=== PATIENT | female | born 1985 | race Caucasian/White ===

== ENCOUNTER 2019-12-21 16:57 | Emergency (ER) | payer OTHER, MEDICAID, SELFPAY ==
[2019-12-21 17:02] VITALS: BP 119/77; PULSE 77; RESP 20; TEMP 37; O2SAT 100
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
--- NOTE | 2019-12-21 18:17 | DI.RAD.S_ITS ---
PROCEDURE: XR CERVICAL SPINE 2V OR 3V INDICATIONS: neck pain, burning down right arm. TECHNIQUE: 3 view(s) of the cervical spine were acquired. COMPARISON: None. FINDINGS: Bones: No fractures or dislocations to the C7-T1 level. The lateral masses of C1 appear intact on the odontoid view. No suspicious bony lesions. Minimal degenerative narrowing is noted at C5-6 and C6-7. Soft tissues: No prevertebral soft tissue swelling. IMPRESSION: Minimal early degenerative change. Dictated by: Soheila Macias M.D. on 12/21/2019 at 18:57 Approved by: Soheila Macias M.D. on 12/21/2019 at 18:58
--- NOTE | 2019-12-21 18:17 | DI.RAD.S_ITS ---
PROCEDURE: XR THORACIC SPINE 3V INDICATIONS: Back pain, burning radiating down arm. TECHNIQUE: 3 views of the thoracic spine were acquired. COMPARISON: None. FINDINGS: Bones: No fractures or dislocations. No suspicious bony lesions. 12 pairs of ribs are noted, and appear intact where visualized. Soft tissues: No paravertebral stripe thickening. IMPRESSION: No acute osseous abnormality. Dictated by: Soheila Macias M.D. on 12/21/2019 at 18:57 Approved by: Soheila Macias M.D. on 12/21/2019 at 18:57
[2019-12-21] MEDS: KETOROLAC 60 MG/2 ML VIAL 30 MG IM (18:44)
== END 2019-12-21 19:44 | disposition home or self-care (01) ==
PROVIDERS: Emergency Provider Nurse Practitioner; Family Provider Physician Assistant
DX: M54.2 Cervicalgia (principal); M54.9 Dorsalgia, unspecified
CPT/HCPCS: 72040; 72072; 96372; 99283; J1885

== ENCOUNTER 2020-12-10 12:13 | Emergency (ER) | payer OTHER, SELFPAY ==
[2020-12-10] VITALS (7 sets, daily range): BP systolic 122–135; BP diastolic 62–87; PULSE 63–77; RESP 16; TEMP 36.2; O2SAT 98–99; BMI 25.0
--- NOTE | 2020-12-10 | DI.US.S_ITS ---
PROCEDURE: US RENAL COMPLETE INDICATIONS: RIGHT UPPER, LOWER ABDOMINAL, AND FLANK PAIN. TECHNIQUE: Real-time scanning was performed of the kidneys and bladder, with image documentation. COMPARISON: None. FINDINGS: Kidneys: Kidneys are normal in size. Right kidney measures 9.9 cm long; left kidney measures 10 cm long. Right renal cortical thickness is 1.3 cm; left renal cortical thickness is 1.7 cm. Renal cortical echotexture is normal. No hydronephrosis or nephrolithiasis. No suspicious solid mass lesions. Bladder: Pre-void bladder volume is 55 mL. Post-void residual is 0 mL. Pre-void images demonstrate no intraluminal masses or stones. On pre-void images, both ureteral jets are noted with color Doppler interrogation. (Of note, ureteral jets may not be detectable in up to 25% of cases due to insufficient differences in specific gravity between ureteral and bladder urine). Miscellaneous: No free pelvic fluid. IMPRESSION: Normal renal ultrasound. No hydronephrosis. No postvoid residual. Dictated by: Romeo Goetz M.D. on 12/10/2020 at 13:08 Approved by: Romeo Goetz M.D. on 12/10/2020 at 13:08
[2020-12-10 12:49] LABS: Add Manual Diff / Slide Review NO; Basophils Absolute Auto 0 /uL (0-100); Basophils Percent Auto 0.8 % (0-2); Eosinophils Absolute Auto 100 /uL (0-450); Eosinophils Percent Auto 1.2 % (2-4); Hematocrit 36.5 % (36-46); Lymphocytes Absolute Auto 1600 /uL (1100-4500); Lymphocytes Percent Auto 30.7 % (25-40); Mean Corpuscular HGB Conc 30.2 % (30-36); Mean Corpuscular Hemoglobin 19.9 PG (26-34); Mean Corpuscular Volume 66.1 fL (80-100); Monocytes Absolute Auto 400 /uL (0-900); Monocytes Percent Auto 8.2 % (3-14); Neutrophils Absolute Auto 3000 /uL (1500-7000); Neutrophils Percent Auto 59.1 % (50-75); Platelet Count 325 X10^3/uL (150-400); Red Blood Cell Count 5.52 X10^6/uL (4.0-5.2); Red Cell Distribution Width 17.8 % (11.6-14.8); White Blood Cell Count 5.1 X10^3/uL (4.5-11.0)
[2020-12-10 12:54] LABS: INR 1.1 (0.9-1.3); Prothrombin Time 12.1 SECONDS (10.1-12.7)
[2020-12-10 12:57] LABS: PTT Partial Thromboplastin Tim 35 SECONDS (26.4-36.2)
[2020-12-10 12:59] LABS: Alanine Aminotransferase 20 IU/L (<35); Albumin 4.5 g/dL (3.5-5.0); Albumin Globulin Ratio 1.4 (1.0-2.8); Alkaline Phosphatase 55 U/L (38-126); Aspartate Aminotransferase 24 IU/L (14-36); BUN Creatinine Ratio 21.1 (6-22); Bilirubin Total 0.1 mg/dL (0.2-1.3); Blood Urea Nitrogen 12 mg/dL (7-17); Calcium 9.1 mg/dL (8.4-10.2); Carbon Dioxide 26 mmol/L (22-32); Chloride 103 mmol/L (98-107); Estimated Glomerular Filt Rate > 60.0 mL/min (>60); Globulin 3.3 g/dL (1.7-4.1); Glucose 111 mg/dL (70-100); HEMOLYSIS < 15 (0-50); Lipase 130 U/L (23-300); Potassium 3.8 mmol/L (3.4-5.1); Sodium 137 mmol/L (137-145); Total Protein 7.8 g/dL (6.3-8.2)
--- NOTE | 2020-12-10 13:02 | DI.US.S_ITS ---
PROCEDURE: US PELVIC COMPLETE INDICATIONS: RIGHT UPPER, LOWER ABDOMINAL, AND FLANK PAIN. TECHNIQUE: Real-time scanning was performed of the pelvic organs, with image documentation. Additional endovaginal scanning was necessary due to incomplete visualization of the adnexal and endometrial structures by transabdominal scanning. COMPARISON: [facility], US, PELVIC COMPLETE, 03/02/2011, 16:50. [facility], US, PELVIC COMPLETE, 11/02/2010, 16:04. [facility], PELVIC COMPLETE, 09/29/2007, 18:22. [facility], US RENAL COMPLETE, 12/10/2020, 13:29. FINDINGS: Uterus: Uterus is normal in size at 8.6 x 6.3 x 4.8 cm. The endometrium measures 16 mm in combined thickness. There is a complex nabothian cyst in the cervix measuring 1.1 cm. Ovaries: Right ovary measures 3.8 x 2.2 x 1.6 cm. Left ovary measures 3.1 x 2.0 x 1.8 cm. There is positive vascularity to both ovaries bilaterally on Doppler ultrasound. Other: No pathologic free abdominal or pelvic fluid. Appendix is not visualized. No secondary findings to suggest acute appendicitis. IMPRESSION: 1. Endometrium is thickened measuring 16 mm. Differential diagnosis include endometrial hyperplasia versus physiological thickening related to menses. A follow-up ultrasound is suggested in 6 weeks. 2. A 1.1 cm complex nabothian cyst. 3. Unremarkable ovaries. Dictated by: Asya Stark M.D. on 12/10/2020 at 14:54 Approved by: Asya Stark M.D. on 12/10/2020 at 15:01
[2020-12-10 13:05] LABS: Anisocytosis 2+
--- NOTE | 2020-12-10 13:20 | ED.ABDPAIN ---
HPI - Abdominal Pain <Jose Padron [facility] - Last Filed: 12/10/20 16:37> General Chief Complaint: Abdominal Pain Stated Complaint: Pain on upper right side of stomach Time Seen by Provider: 12/10/20 12:38 Source: patient Mode of arrival: Ambulatory Limitations: no limitations History of Present Illness HPI narrative: This is a 35-year-old female, former smoker, who has past medical history significant for and tubal ligation, ovarian cyst presents to ED with chief complain of worsening right low abdomen for last 3 days and she was not able to walk yesterday. She had significant decreased appetite did not a for couple of days. Patient reports discomfort extended to right shoulder. Prior to this patient has some discomfort in right upper, side and flank pain and describes as spasming for about 6 months. Patient reports her right-side of abdomen and side feels swollen and bloated. Patient feels chills but no fever. Patient states feels dehydrated and super thirsty. Patient noticed decreased appetite. Patient LMP 12 days ago which was normal and she had started another light period yesterday. Patient reports pain is worse with movement and eating. Patient reports urinary frequency and increased small amount of nonbloody bowel movements for last 2 days. She usually has bowel movement once a day but she had about 3-4 times per 24 hour period. Patient also reports dysparenuria for last 6 months and denies unusual vaginal discharge and reports has 1 sexual partner which is her . No PCP currently. Related Data Allergies Allergy/AdvReac Type Severity Reaction Status Date / Time amoxicillin Allergy Severe Anaphylaxis Verified 12/10/20 12:31 Penicillins Allergy Severe Anaphylaxis Verified 12/10/20 12:31 latex Allergy Mild Rash Verified 12/10/20 12:31 Review of Systems <Jose Padron [employer] - Last Filed: 12/10/20 16:37> Review of Systems Narrative: General: Denies fever, (+) chills, fatigue, malaise, sweats. HEENT: Denies sinus pain, ear pain, sore throat, difficulty swallowing, dizziness. Respiratory: Denies dyspnea, cough, wheezing, hemoptysis, sputum. Cardiovascular: Denies chest pain, palpitations, orthopnea, edema. Gastrointestinal: See HPI : Denies dysuria, (+) frequency, incontinence, hematuria, urinary retention. Musculoskeletal: Denies weakness, joint pain or bony pain. Skin: Denies rash, skin lesions, or other. Neurologic: Denies weakness, headache, numbness, change in speech, confusion, seizures, incoordination. Psychiatric: No concerning psychosocial issues. 12-point review of systems is negative except for those stated above. Patient History <PHYLICIA Cardenas - Last Filed: 12/10/20 16:37> Medical History No significant medical problems Surgical History History of bilateral tubal ligation History of Social History Smoking Status: Former smoker alcohol intake frequency: 0-2 drinks per day Substance Use Type: marijuana Exam <PHYLICIA Cardenas - Last Filed: 12/10/20 16:37> Narrative Exam Narrative: GEN: Alert, oriented x 3, well appearing and nourished, and in no acute distress. Head: Normal cephalic, atraumatic. No scalp or temporal tenderness, palpable mass or rash. EYES: Pupils are equal, round, and reactive to light and accommodation. Extraocular muscles are intact bilaterally. There is no subconjunctival hemorrhage, exudate and sclera non-icteric. ENT: Hearing grossly intact. Nose without bleeding, purulent discharge or deviation. Mucous membrane moist, no mucosal lesion. Throat without erythema, tonsillar hypertrophy or exudate. Uvula in midline, airway patent. Neck: Trachea in midline. No JVD, non-tender without lymphadenopathy. No masses or thyroid megaly. Supple, non-tender and no meningeal signs. CARDIAC: Normal regular rate and rhythm without murmurs, gallops, or rubs. No chest wall tenderness. No peripheral edema, cyanosis or pallor. Capillary refill is less than 2 seconds. RESPIRATORY: Lungs are clear to auscultate bilaterally. No cough, wheezes, rales, or rhonchi. No stridor, respiratory distress, increase work of breathing, or accessary muscle used. ABD: Abdomen soft and non-distended. Mild tenderness to palpate in right lower quadrant, left upper quadrant. No guarding or rebound tenderness to palpate. Bowel sounds are normal in all 4 quadrants. There is no palpable masses or organomegaly. EXT: Full painless ROM of all extremities with no loss of sensation, strength, effusion or edema. SKIN: Warm, dry, normal color for patient. No erythema, lesions or rash over visible areas. BACK: Nontender without deformity or crepitance. Mild left flank tenderness to percuss. NEUROLOGICAL: Alert and oriented to place, time and person. Sensation and motor function intact bilaterally. No facial droops, dysphasia. PSYCHIATRIC: Good judgement and reason, without hallucinations, abnormal affect or abnormal behaviors during the examination. Patient is not suicidal. Initial Vital Signs Initial Vital Signs: Vital Signs Temperature 97.1 F L 12/10/20 12:23 Pulse Rate 77 12/10/20 12:23 Respiratory Rate 16 12/10/20 12:23 Blood Pressure 133/87 12/10/20 12:23 Pulse Oximetry 99 12/10/20 12:23 External Female Exam: normal external appearance Speculum Exam - Vagina: normal appearance of the vagina and other (small amount of dark blood appreciated) Speculum Exam - Cervix: normal appearance of the cervix Bimanual Exam- Vagina & Uterus: normal bimanual exam Bimanual Exam- Adnexa, other: normal adnexae Other: Patient declined entry level civil engineer assistance during pelvic exam. GC chlamydia, wet prep, general culture obtained and sent to lab. <Becky Mcclure DO - Last Filed: 12/11/20 10:52> Initial Vital Signs Initial Vital Signs: Vital Signs Temperature 97.1 F L 12/10/20 12:23 Pulse Rate 77 12/10/20 12:23 Respiratory Rate 16 12/10/20 12:23 Blood Pressure 133/87 12/10/20 12:23 Pulse Oximetry 99 12/10/20 12:23 Scores <PHYLICIA Cardenas - Last Filed: 12/10/20 16:37> GCS [place] coma scale eye opening: Spontaneous [place] coma scale verbal response: Orientated [place] coma scale motor response: Obey commands Gladys coma scale total score: 15 qSOFA Altered Mental Status (GCS <15): No Respiratory rate greater than/equal to 22: No Systolic blood pressure less than or equal to 100: No qSOFA Total: 0 0-1 Not High Risk 1-3 High risk Course <Jose Padron PHYLICIA - Last Filed: 12/10/20 16:37> Orders Ordered: Discontinued Medications Sodium Chloride (Normal Saline 0.9%) 1,000 mls @ 1,000 mls/hr IV BOLUS ONE Stop: 12/10/20 15:18 Last Infusion: 12/10/20 15:22 Dose: 0 mls/hr Documented by: Admin: 12/10/20 14:26 Dose: 1,000 mls/hr Documented by: WANG Ketorolac Tromethamine (Ketorolac 60 Mg/2 Ml Vial) 15 mg IV NOW ONE Stop: 12/10/20 13:26 Last Admin: 12/10/20 13:30 Dose: 15 mg Documented by: NATALY Ondansetron HCl (Ondansetron 4 Mg/2 Ml Inj) 4 mg IV NOW ONE Stop: 12/10/20 12:37 Last Admin: 12/10/20 12:47 Dose: Not Given Documented by: ALEXANDREA Reevaluation(s) Reevaluation #1: Patient reports pain improved and no nausea at this time. Waiting for CT of abdomen pelvis and renal ultrasound results. Informed patient pelvic ultrasound test result showed endometrial thickness which should be followed up by complaint investigations officer specialist for further testing, possible biopsy test. She verbalized understanding. Time: 16:14 Vital Signs Vital signs: Vital Signs - 8 hr 12/10/20 12:23 12/10/20 13:32 12/10/20 13:33 Temperature 97.1 F L Pulse Rate 77 63 72 Respiratory Rate 16 Blood Pressure 133/87 124/74 Pulse Oximetry 99 99 98 12/10/20 14:00 12/10/20 14:30 12/10/20 15:00 Temperature Pulse Rate 67 66 66 Respiratory Rate Blood Pressure 123/82 123/78 122/71 Pulse Oximetry 99 99 99 12/10/20 15:22 Temperature Pulse Rate 66 Respiratory Rate Blood Pressure 135/62 Pulse Oximetry 98 <Becky Mcclure DO - Last Filed: 12/11/20 10:52> Orders Ordered: Discontinued Medications Sodium Chloride (Normal Saline 0.9%) 1,000 mls @ 1,000 mls/hr IV BOLUS ONE Stop: 12/10/20 15:18 Last Infusion: 12/10/20 15:22 Dose: 0 mls/hr Documented by: Admin: 12/10/20 14:26 Dose: 1,000 mls/hr Documented by: WANG Ketorolac Tromethamine (Ketorolac 60 Mg/2 Ml Vial) 15 mg IV NOW ONE Stop: 12/10/20 13:26 Last Admin: 12/10/20 13:30 Dose: 15 mg Documented by: NATALY Ondansetron HCl (Ondansetron 4 Mg/2 Ml Inj) 4 mg IV NOW ONE Stop: 12/10/20 12:37 Last Admin: 12/10/20 12:47 Dose: Not Given Documented by: ALEXANDREA Vital Signs Vital signs: Vital Signs - 8 hr 12/10/20 12:23 12/10/20 13:32 12/10/20 13:33 Temperature 97.1 F L Pulse Rate 77 63 72 Respiratory Rate 16 Blood Pressure 133/87 124/74 Pulse Oximetry 99 99 98 12/10/20 14:00 12/10/20 14:30 12/10/20 15:00 Temperature Pulse Rate 67 66 66 Respiratory Rate Blood Pressure 123/82 123/78 122/71 Pulse Oximetry 99 99 99 12/10/20 15:22 Temperature Pulse Rate 66 Respiratory Rate Blood Pressure 135/62 Pulse Oximetry 98 MDM - Abdominal Pain <PHYLICIA Cardenas - Last Filed: 12/10/20 16:37> Differential Diagnosis Differential diagnosis: Likely acute appendicitis, calculus of kidney, endometriosis, small bowel obstruction and other (Ruptured ovarian cyst, PID) Medical Records Attestation: I reviewed the patient's medical records. Lab Data Attestation: I reviewed the patient's lab results. Result diagrams: 12/10/20 12:39 12/10/20 12:39 Labs: Lab Results 12/10/20 12/10/20 12/10/20 Range/Units 12:39 12:39 12:39 WBC 5.1 (4.5-11.0) X10^3/uL RBC 5.52 H (4.0-5.2) X10^6/uL Hgb 11.0 L (12.0-16.0) g/dL Hct 36.5 (36-46) % MCV 66.1 L (80-100) fL MCH 19.9 L (26-34) PG MCHC 30.2 (30-36) % RDW 17.8 H (11.6-14.8) % Plt Count 325 (150-400) X10^3/uL Neut % (Auto) 59.1 (50-75) % Lymph % (Auto) 30.7 (25-40) % Baker % (Auto) 8.2 (3-14) % Eos % (Auto) 1.2 L (2-4) % Baso % (Auto) 0.8 (0-2) % Neut # (Auto) 3000 (8084-2698) /uL Lymph # (Auto) 1600 (6313-8636) /uL Baker # (Auto) 400 (0-900) /uL Eos # (Auto) 100 (0-450) /uL Baso # (Auto) 0 (0-100) /uL RBC Morphology Not Reportable Anisocytosis 2+ H PT 12.1 (10.1-12.7) SECONDS INR 1.1 (0.9-1.3) APTT 35 (26.4-36.2) SECONDS Sodium 137 (137-145) mmol/L Potassium 3.8 (3.4-5.1) mmol/L Chloride 103 (98-107) mmol/L Carbon Dioxide 26 (22-32) mmol/L BUN 12 (7-17) mg/dL Creatinine 0.57 (0.52-1.04) mg/dL Estimated GFR > 60.0 (>60) mL/min BUN/Creatinine Ratio 21.1 (6-22) Glucose 111 H (70-100) mg/dL Calcium 9.1 (8.4-10.2) mg/dL Total Bilirubin 0.1 L (0.2-1.3) mg/dL AST 24 (14-36) IU/L ALT 20 (<35) IU/L Alkaline Phosphatase 55 (38-126) U/L Total Protein 7.8 (6.3-8.2) g/dL Albumin 4.5 (3.5-5.0) g/dL Globulin 3.3 (1.7-4.1) g/dL Albumin/Globulin Ratio 1.4 (1.0-2.8) Lipase 130 (23-300) U/L Point of care testing: Point of Care Testing Test Results Negative Urine Dip Bedside Urine Glucose Negative Bedside Urine Bilirubin - Negative Bedside Urine Ketone - Negative Urine Specific Whitefield 1.015 Bedside Urine Occult Blood - Negative Bedside Urine pH 6.0 Bedside Urine Protein - Negative Bedside Urine Urobilinogen - Negative Bedside Urine Nitrite - Negative Bedside Urine Leukocytes - Negative Esterase Imaging Data US - ATLASSIAN ADMINISTRATOR: Radiologist's Impression: [address] [id number] ReportSigned Patient: Adrianna Rogers [facility]#: [id number]: 1985Acct:[id number]/Sex: 35 / FDate of Service: 12/10/20Loc: EDAccession Number: [id number] Procedure: US pelvic complete Ordering Provider: Jose Padron PROCEDURE: US PELVIC COMPLETE INDICATIONS: RIGHT UPPER, LOWER ABDOMINAL, AND FLANK PAIN. TECHNIQUE: Real-time scanning was performed of the pelvic organs, with image documentation. Additional endovaginal scanning was necessary due to incomplete visualization of the adnexal and endometrial structures by transabdominal scanning. COMPARISON: [facility], US, PELVIC COMPLETE, 03/02/2011, 16:50. [facility], US, PELVIC COMPLETE, 11/02/2010, 16:04. [facility], PELVIC COMPLETE, 09/29/2007, 18:22. [facility], US RENAL COMPLETE, 12/10/2020, 13:29. FINDINGS: Uterus: Uterus is normal in size at 8.6 x 6.3 x 4.8 cm. The endometrium measures 16 mm in combined thickness. There is a complex nabothian cyst in the cervix measuring 1.1 cm. Ovaries: Right ovary measures 3.8 x 2.2 x 1.6 cm. Left ovary measures 3.1 x 2.0 x 1.8 cm. There is positive vascularity to both ovaries bilaterally on Doppler ultrasound. Other: No pathologic free abdominal or pelvic fluid. Appendix is not visualized. No secondary findings to suggest acute appendicitis. IMPRESSION: 1. Endometrium is thickened measuring 16 mm. Differential diagnosis include endometrial hyperplasia versus physiological thickening related to menses. A follow-up ultrasound is suggested in 6 weeks. 2. A 1.1 cm complex nabothian cyst. 3. Unremarkable ovaries. Dictated by: Asya Stark M.D. on 12/10/2020 at 14:54 Approved by: Asya Stark M.D. on 12/10/2020 at 15:01 US-Renal: Radiologist's Impression: [address] [id number] ReportSigned Patient: Adrianna Rogers MMR#: [id number]: 1985Acct:[id number]/Sex: 35 / FDate of Service: 12/10/20Loc: EDAccession Number: [id number] Procedure: US renal complete Ordering Provider: Jose Padron PROCEDURE: US RENAL COMPLETE INDICATIONS: RIGHT UPPER, LOWER ABDOMINAL, AND FLANK PAIN. TECHNIQUE: Real-time scanning was performed of the kidneys and bladder, with image documentation. COMPARISON: None. FINDINGS: Kidneys: Kidneys are normal in size. Right kidney measures 9.9 cm long; left kidney measures 10 cm long. Right renal cortical thickness is 1.3 cm; left renal cortical thickness is 1.7 cm. Renal cortical echotexture is normal. No hydronephrosis or nephrolithiasis. No suspicious solid mass lesions. Bladder: Pre-void bladder volume is 55 mL. Post-void residual is 0 mL. Pre-void images demonstrate no intraluminal masses or stones. On pre-void images, both ureteral jets are noted with color Doppler interrogation. (Of note, ureteral jets may not be detectable in up to 25% of cases due to insufficient differences in specific gravity between ureteral and bladder urine). Miscellaneous: No free pelvic fluid. IMPRESSION: Normal renal ultrasound. No hydronephrosis. No postvoid residual. Dictated by: Romeo Goetz M.D. on 12/10/2020 at 13:08 Approved by: Romeo Goetz M.D. on 12/10/2020 at 13:08 [facility] Narrative Medical decision making narrative: This is a 35 year female who presents to ED with severe right lower quadrant pain for last 3 days radiating to right shoulder with nausea, decreased appetite, irregular menstruation. Patient also reports urinary and stool frequent, chills as associated symptoms. Before this patient had right-sided abdominal bloatedness and LUQ and epigatric pain for at least 6 month and concerned for cholecystitis. She also reports dyspareunia. Physical exam appreciated right lower quadrant and left upper quadrant mild tenderness and right flank discomfort with percussion. Otherwise, unremarkable physical exam. Given irregular menstruation and LMP 2 days ago which is light, concerned for ruptured ovarian cyst. Patient reports history of ovarian cyst. Ultrasound of pelvic and renal ordered. Normal renal ultrasound without mass, lesion, hydronephrosis or nephrolithiasis. Urine test was negative for infection. Status post BTL, urine test was negative. Pelvic ultrasound shows endometrium thickened which measured 16 mm. Also it showed 1.1 cm complex nabothian cyst. Unremarkable ovaries. Pelvic exam was unremarkable. GC chlamydia, genital culture, wet prep obtained and sent to lab. Abdomen/pelvis CT found that appendix was not visualized but secondary signs of acute appendicitis not showing. There is a large amount of fecal debris is in 2nd and right colon. 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 Gallbladder and pancreas unremarkable. Patient advised to elect primary care physician and advised to follow up with thyroid hormone test if she has concerns. Findings shared with patient. Advised to take iron pill if patient is symptomatic anemia and has history of known anemia. Also, patient advised to follow-up with complaint investigations officer provider refer symptoms persists and to follow-up on ultrasound test results of thickened endometrium. She verbalized understanding in agreement with the treatment plan. <Becky Mcclure, DO - Last Filed: 12/11/20 10:52> Lab Data Labs: Lab Results 12/10/20 12/10/20 12/10/20 Range/Units 12:39 12:39 12:39 WBC 5.1 (4.5-11.0) X10^3/uL RBC 5.52 H (4.0-5.2) X10^6/uL Hgb 11.0 L (12.0-16.0) g/dL Hct 36.5 (36-46) % MCV 66.1 L (80-100) fL MCH 19.9 L (26-34) PG MCHC 30.2 (30-36) % RDW 17.8 H (11.6-14.8) % Plt Count 325 (150-400) X10^3/uL Neut % (Auto) 59.1 (50-75) % Lymph % (Auto) 30.7 (25-40) % Baker % (Auto) 8.2 (3-14) % Eos % (Auto) 1.2 L (2-4) % Baso % (Auto) 0.8 (0-2) % Neut # (Auto) 3000 (2586-9175) /uL Lymph # (Auto) 1600 (3181-7331) /uL Baker # (Auto) 400 (0-900) /uL Eos # (Auto) 100 (0-450) /uL Baso # (Auto) 0 (0-100) /uL RBC Morphology Not Reportable Anisocytosis 2+ H PT 12.1 (10.1-12.7) SECONDS INR 1.1 (0.9-1.3) APTT 35 (26.4-36.2) SECONDS Sodium 137 (137-145) mmol/L Potassium 3.8 (3.4-5.1) mmol/L Chloride 103 (98-107) mmol/L Carbon Dioxide 26 (22-32) mmol/L BUN 12 (7-17) mg/dL Creatinine 0.57 (0.52-1.04) mg/dL Estimated GFR > 60.0 (>60) mL/min BUN/Creatinine Ratio 21.1 (6-22) Glucose 111 H (70-100) mg/dL Calcium 9.1 (8.4-10.2) mg/dL Total Bilirubin 0.1 L (0.2-1.3) mg/dL AST 24 (14-36) IU/L ALT 20 (<35) IU/L Alkaline Phosphatase 55 (38-126) U/L Total Protein 7.8 (6.3-8.2) g/dL Albumin 4.5 (3.5-5.0) g/dL Globulin 3.3 (1.7-4.1) g/dL Albumin/Globulin Ratio 1.4 (1.0-2.8) Lipase 130 (23-300) U/L Point of care testing: Point of Care Testing Test Results Negative Urine Dip Bedside Urine Glucose Negative Bedside Urine Bilirubin - Negative Bedside Urine Ketone - Negative Urine Specific Whitefield 1.015 Bedside Urine Occult Blood - Negative Bedside Urine pH 6.0 Bedside Urine Protein - Negative Bedside Urine Urobilinogen - Negative Bedside Urine Nitrite - Negative Bedside Urine Leukocytes - Negative Esterase Discharge Plan Departure Patient Disposition: Home Clinical Impression: Endometrial thickening on ultrasound Abdominal pain Qualifiers: Abdominal location: right lower quadrant Qualified Code(s): R10.31 - Right lower quadrant pain Anemia Qualifiers: Anemia type: unspecified type Qualified Code(s): D64.9 - Anemia, unspecified Instructions: DI for Abdominal Pain-Adult Activity Restrictions/Additional Instructions: You have been diagnosed with [abdominal pain. No signs of UTI, test was negative. Pelvic ultrasound shows thickened endometrium which could be due to menstrual vs. Hyperplasia. It is recommended follow-up ultrasound in 6 weeks for resolution. Kidney ultrasound without acute findings such as mass, hydronephrosis, or kidney stone. Abdominal CT was unremarkable. There auras large amount stools in right-sided of colon and no indications for acute sage tests itis at this time. Chemistry test was unremarkable. CBC test shows mild anemia. Pelvic culture pending. You will receive a phone call from us if you require antibiotic medications. ]. What to do: *Take your medications as directed. You can take [id number] Tylenol and or Motrin as needed for discomfort. Use Zofran that you have use as needed for nausea. *Follow up with your primary care provider in 2-3 days, call for an appointment. Let them know you were seen in the ED and that we asked you to be seen in follow up. *Return to ED if you have any new, worsening, or concerning symptoms, such as [fever, worsening abdominal pain, unable to tolerate fluids, chest pain, breathing difficulty or any acute concerns]. Referrals: [facility] [Outside] [place],MD Lilian [Physician] - <Becky Mcclure DO - Last Filed: 12/11/20 10:52> Cosign ED Attending Ton Attestation: I was immediately available in the department for consultation. Documentation has been reviewed. I agree with assessment and plan.
[2020-12-10] MEDS: KETOROLAC 60 MG/2 ML VIAL 15 MG IV (13:30)
[2020-12-10] MEDS: SODIUM CHLORIDE 0.9% 1,000 ML 1000 ML IV (14:26)
--- NOTE | 2020-12-10 15:20 | DI.CT.S_ITS ---
PROCEDURE: CT ABDOMEN PELVIS W CON INDICATIONS: RLQ pain x 3 days, decreased appetite TECHNIQUE: After the administration of intravenous contrast, 5 mm thick sections acquired from the diaphragm to the symphysis. 5 mm coronal and sagittal reformats were acquired. For radiation dose reduction, the following was used: automated exposure control, adjustment of mA and/or kV according to patient size. COMPARISON: None. FINDINGS: Image quality: Excellent. ABDOMEN: Lung bases: Lung bases are clear. Heart size is normal. Solid organs: Liver is normal in size and enhancement. Gallbladder is unremarkable. Biliary system is non dilated. Pancreas enhances normally. Spleen is normal in size and enhancement. No adrenal nodules. Kidneys demonstrate normal size and enhancement, without hydronephrosis. Peritoneum and bowel: Bowel loops demonstrate normal wall thickness and caliber. No free fluid or air. Large amount of fecal debris in the cecum and right colon. The appendix is not visualized. Nodes and vessels: No retroperitoneal or mesenteric adenopathy by size criteria. Aorta and inferior vena cava are normal in size. Miscellaneous: No ventral hernias. PELVIS: Genitourinary: Bladder wall thickness is normal. Miscellaneous: No inguinal hernias or adenopathy. There is a collapsed right ovarian cyst on image 71/2. Bones: No suspicious bony lesions. No vertebral body compression fractures. IMPRESSION: 1. Appendix not visualized. No secondary signs of acute appendicitis. 2. Large amount of fecal debris in the cecum and right colon. 3. Collapsed right adnexal cyst. Dictated by: Jabier Whipple M.D. on 12/10/2020 at 16:10 Approved by: Jabier Whipple M.D. on 12/10/2020 at 16:13
--- NOTE | 2020-12-10 15:30 | PC.NURSE ---
assisted pt to bsc, pt very unsteady on feet. pt sob with movement, pt states is normal for her. pt requiring 2 person assist to get back onto stretcher. pt's vitals stable when she returned to stretcher.
[2020-12-16 14:13] LABS: Chlamydia trachomatis Negative (Negative); Mycoplasma genitalium Negative (Negative); Neisseria gonorrhoeae Negative (Negative)
== END 2020-12-10 17:09 | disposition home or self-care (01) ==
PROVIDERS: Emergency Medicine; Emergency Provider Nurse Practitioner Family; Family Provider Physician Assistant
DX: R93.89 Abnormal findings on diagnostic imaging of other specified body structures (principal); R10.31 Right lower quadrant pain; D64.9 Anemia, unspecified; N94.10 Unspecified dyspareunia
CPT/HCPCS: 36415; 74177; 76770; 76830; 76856; 80053; 81003; 81025; 83690; 85025; 85610; 85730; 87070; 87205; 87210; 87491; 87591; 96361; 96374; 99283; 99284; J1885

== ENCOUNTER → 2021-04-18 08:19 | Outpatient (CLI) | payer OTHER, MEDICAID, SELFPAY ==
[2021-04-18 14:14] LABS: COVID19 -Nasal RAPID Negative (Negative)
== END ==
PROVIDERS: Family Provider Physician Assistant; Visit Provider Obstetrics & Gynecology
DX: Z01.812 Encounter for preprocedural laboratory examination (principal); Z20.822 Contact with and (suspected) exposure to COVID-19
CPT/HCPCS: 87635

== ENCOUNTER 2021-04-19 06:46 | Day surgery (SDC) | payer OTHER, SELFPAY ==
[2021-04-14 15:13] VITALS: BMI 25.9
[2021-04-19] VITALS (17 sets, daily range): BP systolic 99–140; BP diastolic 56–90; PULSE 56–77; RESP 12–18; TEMP 36.1–37.3; O2SAT 96–100; BMI 25.9
--- NOTE | 2021-04-19 | PATH_ITS ---
[facility] Accession Number: [id number] . 01 Material submitted: . uterus - UTERUS AND BILATERAL FALLOPIAN TUBES . 02 Diagnosis: Uterus and Bilateral Fallopian Tubes, Supracervical Hysterectomy and Bilateral Salpingectomy (Weight 43 grams): Secretory endometrium; negative for glandular hyperplasia, cytologic atypia, or malignancy. Myometrium with no significant histomorphologic abnormality. Uterine serosa with serosal adhesions, non-specific. Fallopian tubes x2 with scattered benign paratubal cysts (1-5 mm in greatest dimension); negative for atypia or malignancy. V 04/22/2021 1105 Local . 02 Electronically signed: . Lucero Recinos MD, Pathologist NPI- [id number] . 01 Gross description: . The specimen is received in formalin labeled uterus and bilateral fallopian tubes and consists of a fragmented uterus weighing 43 grams and measuring 10.0 x 9.0 x 4.0 cm in aggregate. The serosa is kelley-pink with fibrinous adhesions. The cervix is not identified. Sectioning reveals a kelley-pink endometrium measuring 0.1 cm in thickness. The myometrium is kelley-pink and trabeculated. Also, received are two detached fallopian tubes averaging 4.0 cm in length x 1.0 cm in diameter. The serosa is pink-purple and smooth with multiple paratubal cysts ranging from 0.1 to 0.5 cm. Sectioning reveals a kelley-pink mucosa and a stellate lumen measuring 0.4 cm in diameter. Special Makeup Fx Artist Instructor sections are submitted. . A1-A4 - Special Makeup Fx Artist Instructor uterus. A5-A6 - Special Makeup Fx Artist Instructor cross-sections of fallopian tubes with bisected fimbria. ([id number]) /FORM[facility]LY [facility], 1928–1983 04/20/2021 1634 Local . 02 Pathologist provided ICD-10: N88.8, N73.6 . 02 CPT . 335136 Performed at: 01 [facility] [address] [place] [address], [place], [place] [id number] MD Eduardo Stafford MD Phone: [phone] Performed at: [facility] [address] [place], [place] [id number] MD Lilo Mercer MD Phone: [phone]
[2021-04-19] MEDS: GABAPENTIN 300 MG CAPSULE PO (07:13)
[2021-04-19] MEDS: ACETAMINOPHEN 325 MG TABLET 975 MG PO (07:13)
[2021-04-19] MEDS: SCOPOLAMINE 1 PATCH TOP (07:14)
[2021-04-19] MEDS: LACTATED RINGERS 1,000 ML 100 ML IV ×3 (07:32→20:50)
--- NOTE | 2021-04-19 07:43 | PM.PREOP ---
Pre-operative Note COVID-19 COVID-19 status: Negative Result date/Date tested (Pos, Neg/Pending): 04/18/21 Interval Note History & Physical reviewed/Exam performed by Physician: Yes Changes to H&P: No H&P completed within 30 days and has changed as indicated here:: 04/18/21
[2021-04-19] MEDS: CLINDAMYCIN 900 MG/50 ML PIGGYBACK 50 MG IV (07:56)
--- NOTE | 2021-04-19 08:31 | SUR.OPER ---
Lithotomy on padded OR bed. Eads Pad Positioner under torso. Head on pillow, arms padded and tucked at sides. Legs secured in padded yellow fins stirrups.
[2021-04-19] MEDS: BUPIVACAINE 0.5% W/ EPI (PF) 30 ML VIAL INJ (08:41)
[2021-04-19] MEDS: ROPIVACAINE 0.2% PF 2 MG/ML 10ML AMP 20 ML INJ (08:44)
--- NOTE | 2021-04-19 09:20 | P.OP_ITS ---
Operative Date/Time/Diagnoses Date of procedure: 04/19/21 Time of procedure: 09:20 Pre-op diagnosis: Dyspareunia Pelvic adhesions Post-op diagnosis: same Procedure & Clinicians Procedure: Procedures Operation Date: 04/19/21 07:45 Actual Procedures Side Surgeon p Laparoscopic Supracervical Hysterectomy w/ Bilateral Salpingectomy, poss. open Cassandra Araujo MD Indications: Pelvic pain Dyspareunia Surgeon: Cassandra Araujo Material Flow Analyst: Sarabjit Steel Anesthesia Type: General and Local Operative Notes Findings: 7 week size anteverted uterus Bladder to uterine adhesions Tubes status post ligation bilaterally Normal ovaries Normal liver, gallbladder, and appendix Closure Type: primary Specimen(s): left tube, right tube and uterus Applied: catheter (Removed at the end of the case) Estimated blood loss (mL): 10 Blood products transfused: none Procedure in detail: The patient was taken to the operating room where she was placed in the dorsal supine position. After adequate general endotracheal anesthesia was achieved, she was placed in the dorsal lithotomy position, and prepped and draped in the usual sterile fashion. A timeout was performed. A bivalve speculum was placed into the vagina and the anterior lip of the cervix grasped with a single-tooth tenaculum. The cervical os was sequentially dilated until the ZUMI uterine manipulator could pass easily into the endometrial cavity. The single-tooth tenaculum was removed from the anterior lip of the cervix, and the bivalve speculum was removed from the vagina. Attention was then turned to the abdomen where 6 mL of half percent Marcaine with epinephrine were injected in the umbilical fold. A 5 mm incision was made. The Verhees needle was placed into the peritoneal cavity, and its placement confirmed by aspiration and drop test. The Verhees needle was removed. A 5 mm trocar was placed without difficulty. 2 other incisions were made 4 cm lateral to the umbilicus after 5 mL of half percent Marcaine with epinephrine were injected. These were 5 mm incisions. Two 5 mm trochars were placed under direct visualization. The right tube was grasped with an atraumatic grasper. Using the plasma kinetic with settings of 40 W the mesosalpinx was cauterized and cut all the way down to the cornua of the uterus. The cornua of the uterus was then grasped with an atraumatic grasper. The utero-ovarian ligaments were cauterized and cut. The round ligament and broad ligament was cauterized and cut with plasma kinetic. Hemostasis was achieved. There were adhesions between the uterus and bladder and these were taken down with the Endo Warren and PlasmaKinetic. The bladder flap was created jail across with the PlasmaKinetic. The uterine arteries on the right side were extensively cauterized with plasma kinetic. All of this was repeated on the left side. The remainder of the bladder flap was created using the plasma kinetic, and the bladder taken down off the lower uterine segment and cervix. Using the Endoloop, the cervix was amputated from the uterus 2 cm above the uterosacral ligaments, after the ZUMI uterine manipulator was removed from the uterus. A sponge stick was placed into the vagina. The endocervical canal was extensively cauterized with the PlasmaKinetic. 6 mL of half percent Marcaine with epinephrine were injected above the pubic symphysis. A 12 mm trocar was placed. An Endobag was placed through the suprapubic trocar and the uterus and tubes were placed into the Endobag. The trocar was removed. The edges of the endobag were brought up through the skin. The Rohan was placed into the endobag. The uterus was hand morcellated in approximately 6 pieces. The Endobag was removed with the Rohan from the peritoneal cavity. The pelvis was copiously irrigated with warm normal saline. No bleeding was noted. The instruments were removed from the abdomen. The CO2 was allowed to escape. The suprapubic incision was closed on the fascia with 0 Vicryl. All of the incisions were closed with 4-0 Biosyn in a subcuticular fashion. The moistened sponge stick was removed from the vagina. Sponge, lap, and instrument counts were correct x-2. The patient tolerated the procedure well, was taken to PACU in stable condition. The nurse practitioner physicians assistant during this case did the right side of the uterus. They ran the camera for the primary surgeon. They assisted in retraction in the fascia in creating the suprapubic incision. Complications: none Post-operative Condition: stable Disposition: PACU Plan for aftercare: To acute care after recovery
[2021-04-19] MEDS: OXYCODONE IR 5 MG TABLET PO (10:18)
[2021-04-19] MEDS: fentaNYL 100 MCG/2 ML INJ IV ×2 (10:19→10:24)
[2021-04-19] MEDS: KETOROLAC 30 MG/ML VIAL IV ×2 (11:04→16:59)
[2021-04-19] MEDS: ACETAMINOPHEN 325 MG TABLET 650 MG PO ×2 (12:32→17:00)
--- NOTE | 2021-04-19 14:49 | PC.NURSE ---
Rec'd pt from PACU to rm 225 at 1055. Pt is drowsy but awakens to verbal. VSS. RA. Oriented to room, routine, fall risk, use of call light. Instructed pt to wait for assist before getting OOB. Advanced diet to general. Pt tolerated well. Ambulates to BR to void with gait belt and contact guard assist. Supportive spouse at bedside.
[2021-04-19] MEDS: DOCUSATE 250 MG CAPSULE PO (20:46)
[2021-04-20] MEDS: KETOROLAC 30 MG/ML VIAL IV ×2 (00:18→05:41)
[2021-04-20] MEDS: ACETAMINOPHEN 325 MG TABLET 650 MG PO ×2 (00:18→08:32)
[2021-04-20 00:30] VITALS: BP 111/74; PULSE 80; RESP 16; O2SAT 98
[2021-04-20 00:43] VITALS: TEMP 36.6
[2021-04-20 04:37] VITALS: BP 96/50; PULSE 60; RESP 14; TEMP 36.2; O2SAT 99
[2021-04-20 05:28] LABS: Add Manual Diff / Slide Review NO; Basophils Absolute Auto 0 /uL (0-100); Basophils Percent Auto 0.2 % (0-2); Eosinophils Absolute Auto 0 /uL (0-450); Hematocrit 30.3 % (36-46); Hemoglobin 9.7 g/dL (12.0-16.0); Lymphocytes Absolute Auto 1200 /uL (1100-4500); Mean Corpuscular HGB Conc 32.1 % (30-36); Mean Corpuscular Hemoglobin 22.8 PG (26-34); Mean Corpuscular Volume 71.1 fL (80-100); Monocytes Absolute Auto 900 /uL (0-900); Monocytes Percent Auto 7.6 % (3-14); Neutrophils Absolute Auto 9800 /uL (1500-7000); Neutrophils Percent Auto 82.2 % (50-75); Platelet Count 216 X10^3/uL (150-400); Red Blood Cell Count 4.27 X10^6/uL (4.0-5.2); Red Cell Distribution Width 18.7 % (11.6-14.8)
[2021-04-20 08:00] VITALS: BP 96/45; PULSE 71; RESP 17; TEMP 36.4; O2SAT 98
[2021-04-20] MEDS: DOCUSATE 250 MG CAPSULE PO (08:32)
--- NOTE | 2021-04-20 10:41 | CM.DANOTE ---
DCP: Case received, EMR reviewed and met with patient. Spouse, Kyree, was also at bedside. Introduced self and role. Was able to obtain information regarding patient's baseline activity status prior to surgery. DCP assessment completed with information currently available. Patient is a 36 year old female who admitted yesterday morning to the care of the CUSTOMER SUPPORT SPECIALIST team. Payer: confirmed: [facility]. Patient came to the hospital via private vehicle for a surgical procedure. She had laparoscopic supracervical hysterectomy. Patient has history of dyspareunia. Met briefly with patient and spouse. She was laying on her side in bed, alert and oriented. She was complaining of some nausea. Confirmed that patient resides in [place] with Kyree. She is independent at her baseline, and is employed at [employer]. P: Patient is to be discharged home today with no needs. She will follow up with her CUSTOMER SUPPORT SPECIALIST at her office. Fanny Etienne RN/Blister Packaging Machine Operator
--- NOTE | 2021-04-20 11:53 | PC.NURSE ---
Discharge: Pt feels ready to d/c to home. She has amb in room. No vag flow seen. She has taken a sm amt of diet. She has some sl nausea at times. Med offered for same. She declined. The food doesn't agree with her. Spouse reports he will cook for her at home. Instructed pt to call md if nausea worsens or if she is unable to keep fluids or foods down. Reviewed d/c packet. Rx was esent and they were shown this. Discussed wound care. Pt's spouse is answering more of the questions and got most of the instructions ssince pt is tired and dozes off and on in bed. Questions answered. Pt d/c home via auto w/spouse.
== END 2021-04-20 11:00 | disposition home or self-care (01) ==
LOC: OR 06:47 → AC 06:49
PROVIDERS: Family Provider Physician Assistant; PCP Registered Nurse; Referring Provider Obstetrics & Gynecology; Visit Provider Obstetrics & Gynecology
PROC: 0UT94ZL Resection of Uterus, Supracervical, Percutaneous Endoscopic Approach (ICD-10-PCS; CPT 58542; principal; 2021-04-19 07:45)
DX: N94.10 Unspecified dyspareunia (principal); N73.6 Female pelvic peritoneal adhesions (postinfective); N83.8 Other noninflammatory disorders of ovary, fallopian tube and broad ligament; F41.9 Anxiety disorder, unspecified; J45.20 Mild intermittent asthma, uncomplicated; K21.9 Gastro-esophageal reflux disease without esophagitis
CPT/HCPCS: 58542; 36415; 36592; 85025; J0330; J1100; J1885; J2250; J2405; J2704; J2795; J3010

== ENCOUNTER 2021-04-23 09:28 | Emergency (ER) | payer OTHER, SELFPAY ==
[2021-04-19 12:34] VITALS: BMI 25.9
[2021-04-23] VITALS (15 sets, daily range): BP systolic 108–124; BP diastolic 56–80; PULSE 73–85; RESP 18; TEMP 37.2; O2SAT 92–100; BMI 26.6
--- NOTE | 2021-04-23 09:32 | DI.RAD.S_ITS ---
PROCEDURE: XR CHEST 1V INDICATIONS: suspected sepsis TECHNIQUE: One view of the chest was acquired. COMPARISON: [facility], , CHEST 2 VIEW, 04/26/2010, 21:34. [facility], , XR THORACIC SPINE 3V, 12/21/2019, 18:26. FINDINGS: Surgical changes and devices: None. Lungs and pleura: No focal infiltrates are seen. Calcified granulomas seen at base. On this semiupright portable chest examination, no large pneumothorax or large pleural effusions are seen. Mediastinum: Mediastinal contours appear normal. Heart size is normal. Bones and chest wall: No suspicious bony lesions. Overlying soft tissues appear unremarkable. IMPRESSION: No focal infiltrates are seen. Dictated by: Romeo Goetz M.D. on 04/23/2021 at 9:07 Approved by: Romeo Goetz M.D. on 04/23/2021 at 9:08
--- NOTE | 2021-04-23 09:40 | DI.CT.S_ITS ---
PROCEDURE: CT ABDOMEN PELVIS W CON INDICATIONS: severe pain, vomiting, recent lap hyst TECHNIQUE: After the administration of intravenous contrast, axial sections acquired from the lung bases to the pubic symphysis. Coronal and sagittal reformats were performed. For radiation dose reduction, the following was used: automated exposure control, adjustment of mA and/or kV according to patient size. COMPARISON: [facility], CR, XR CHEST 1V, 04/23/2021, 9:47. [facility], CT, CT ABDOMEN PELVIS W CON, 12/10/2020, 15:33. [facility], US, US PELVIC COMPLETE, 03/09/2021, 16:41. FINDINGS: Image quality: Excellent. Lung bases: Unremarkable. Heart: No significant findings. ABDOMEN: Liver: Unremarkable. Gallbladder: Unremarkable. Biliary ducts: Unremarkable. Pancreas: Unremarkable. Spleen: Unremarkable. Adrenal Glands: Unremarkable. Kidneys and Ureters: Unremarkable. Stomach and Bowel: Stomach, small bowel loops, and colon are unremarkable. There is a moderate amount of stool seen within the colon. Peritoneum: A small amount of free intraperitoneal fluid can be seen. There is a small to moderate of ascites seen that measures up to 30 Hounsfield units. Ventral Wall: No hernias. Postoperative change with gas and irregularity can be seen involving the anterior abdominal wall. There is a right rectus sheath hematoma seen, as on series 2, image 65 measuring approximately 3.5 x 2.5 cm in greatest axial dimension. Abdominal Nodes: No retroperitoneal or mesenteric adenopathy by size criteria. Vessels: Aorta and inferior vena cava are normal in size. PELVIS: Pelvic Organs: Supracervical hysterectomy change is seen. Generalized soft tissue irregularity is seen, yet without a focal fluid collection to suggest abscess. Is an apparent right ovarian hemorrhagic cyst is again seen, as on series 2, image 67 measuring 1.5 cm. Bladder: Unremarkable. Pelvic Nodes: No enlarged lymph nodes. Miscellaneous: No hernias are seen. Bones: Unremarkable. IMPRESSION: Interval supracervical hysterectomy, with generalized inflammatory change and a [id number] amount of complicated ascites, likely hemorrhagic. No focal abscess is identified. Postoperative change of the anterior abdominal wall is seen, including a mild right rectus sheath hematoma. A right ovarian hemorrhagic cyst is again seen. There is a moderate amount of stool seen within the colon. Please correlate with an underlying history of constipation. Dictated by: Romeo Goetz M.D. on 04/23/2021 at 9:59 Approved by: Romeo Goetz M.D. on 04/23/2021 at 10:03
[2021-04-23] MEDS: SODIUM CHLORIDE 0.9% 1,000 ML 1000 ML IV (09:45)
[2021-04-23] MEDS: HYDROMORPHONE 0.5 MG INJ IV (09:46)
[2021-04-23] MEDS: LACTATED RINGERS 1,000 ML 150 ML IV (09:46)
[2021-04-23] MEDS: ONDANSETRON 4 MG/2 ML INJ IV (09:46)
[2021-04-23 09:51] LABS: Add Manual Diff / Slide Review NO; Basophils Absolute Auto 0 /uL (0-100); Basophils Percent Auto 0.2 % (0-2); Eosinophils Absolute Auto 100 /uL (0-450); Eosinophils Percent Auto 0.9 % (2-4); Hematocrit 35.5 % (36-46); Hemoglobin 11.6 g/dL (12.0-16.0); Lymphocytes Absolute Auto 900 /uL (1100-4500); Lymphocytes Percent Auto 10.2 % (25-40); Mean Corpuscular HGB Conc 32.6 % (30-36); Mean Corpuscular Hemoglobin 23.4 PG (26-34); Mean Corpuscular Volume 71.7 fL (80-100); Monocytes Absolute Auto 500 /uL (0-900); Monocytes Percent Auto 5.3 % (3-14); Neutrophils Absolute Auto 7400 /uL (1500-7000); Neutrophils Percent Auto 83.4 % (50-75); Platelet Count 272 X10^3/uL (150-400); Red Blood Cell Count 4.95 X10^6/uL (4.0-5.2); White Blood Cell Count 8.9 X10^3/uL (4.5-11.0)
--- NOTE | 2021-04-23 09:51 | ED_ITS ---
HPI - Abdominal Pain General Chief Complaint: Abdominal Pain Stated Complaint: SURGERY 04/19 LOTS OF PAIN Time Seen by Provider: 04/23/21 09:34 Source: patient and family Mode of arrival: Family Vehicle Limitations: no limitations History of Present Illness HPI narrative: 36-year-old female former smoker with history of pelvic adhesions presents with her significant other and a chief complaint of a rather sudden o nset severe lower pelvic and right lower quadrant pain that started this morning. She has 10/10 pain that is worse when she moves in improves slightly with rest. She has vomited 3 times due to the pain. She denies any vaginal bleeding or discharge. She denies any dysuria, frequency or urgency. She had a laparoscopic hysterectomy at this hospital on April 19. She had been doing fine well with good pain control up until the onset of the symptoms this morning. She last had anything to eat or drink at about 9:00 a.m.. She has had no fever or chills MD complaint: abdominal pain Onset (ago): hour(s) Pain Consistency: constant Location: RLQ and suprapubic Severity: severe Severity scale (1-10): 10 Quality: stabbing and sharp Radiation: none Migration to: no migration Relieving factors: rest Exacerbating factors: movement Context: recent surgery/procedure Associated symptoms: nausea and vomiting Related Data Home Medications Medication Instructions Recorded Confirmed diazepam PO PRN PRN 04/18/21 04/18/21 acyclovir 400 mg PO PRN PRN 04/19/21 04/19/21 escitalopram oxalate [Lexapro] 20 mg PO DAILY 04/19/21 04/19/21 propranolol 10 mg PO QID 04/19/21 04/19/21 Previous Rx's Medication Instructions Recorded oxycodone 5 mg PO Q4H PRN #14 tab 04/20/21 ondansetron 4 mg PO TID-QID PRN #10 tab 04/23/21 Allergies Allergy/AdvReac Type Severity Reaction Status Date / Time amoxicillin Allergy Severe Anaphylaxis Verified 04/23/21 09:37 lurasidone [From Latuda] Allergy Severe Anxiety Verified 04/23/21 09:37 Penicillins Allergy Severe Anaphylaxis Verified 04/23/21 09:37 castor oil Allergy Intermediate Verified 04/23/21 09:37 latex Allergy Mild Rash Verified 04/23/21 09:37 Review of Systems Constitutional Constitutional: Denies chills, Denies fatigue, Denies fever(s), Denies frequent falls, Denies lethargy and Denies weakness Eyes Eyes: Denies change in vision, Denies eye discharge, Denies irritation and Denies loss of vision ENT Ears, Nose, Mouth, and Throat: Denies change in voice, Denies dizziness, Denies neck pain, Denies sore throat and Denies throat swelling Cardiovascular Cardiovascular: Denies chest pain, Denies irregular heart rhythm, Denies lig htheadedness, Denies palpitations, Denies dyspnea, Denies dyspnea on exertion and Denies orthopnea Respiratory Respiratory: Denies cough, Denies dyspnea, Denies dyspnea on exertion and Denies wheezing Gastrointestinal Gastrointestinal: Reports abdominal pain, Denies change in bowel habits, Denies diarrhea, Reports nausea and Reports vomiting Musculoskeletal Musculoskeletal: Denies neck pain and Denies numbness Integumentary/Breasts Skin/Breast: Denies pruritus, Denies erythema, Denies rash and Denies wounds Neurologic Neurologic: Denies behavioral changes, Denies confusion, Denies dizziness, Denies frequent falls, Denies loss of vision, Denies numbness and Denies weakness Psychiatric Psychiatric: Denies anxiety, Denies behavioral changes, Denies confusion, Denies depression, Denies homicidal ideation and Denies suicidal ideation Endocrine Endocrine: Denies fatigue, Denies flushing and Denies palpitations Hematologic/Lymphatic Hematologic/Lymphatic: Denies easy bruising Allergic/Immunologic Allergic/Immunologic: Denies urticaria, Denies throat swelling and Denies wheezing Patient History Medical History Anxiety Bipolar 1 disorder Depression H/O migraine No significant medical problems Surgical History History of bilateral tubal ligation History of History of cervical cerclage [employer] teeth extracted Social History household members: spouse and children Smoking Status: Former smoker alcohol intake: former Smoking Status: Former smoker alcohol intake frequency: 0-2 drinks per day Substance Use Type: marijuana Exam Narrative Exam Narrative: GENERAL: [36] year old patient appears stated age. Well- developed patient, in obvious significant distress, in significant pain, brought in her lower abdomen HEAD: Atraumatic. Normocephalic. EYES: Pupils equal round and reactive. Extraocular motions intact. No scleral icterus. No injection or drainage. ENT: Nose without bleeding, purulent drainage. Throat without erythema, tonsillar hypertrophy or exudate. Airway patent. NECK: Trachea midline. Non tender CARDIOVASCULAR: Regular rate and rhythm without murmurs, gallops, or rubs. RESPIRATORY: Clear to auscultation. Breath sounds equal bilaterally. No wheezes, rales, or rhonchi. GASTROINTESTINAL: Abdomen soft, significant tender in the lower portions of the abdomen, the incisions are clean, dry and intact EXTREMITIES: No edema or joint tenderness. BACK: Nontender without deformity or crepitance. No flank tenderness. NEURO: AOx3. 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) Stat 04/23/21 10:00 Blood Culture Stat Discontinued Medications Hydromorphone HCl (Hydromorphone 0.5 Mg Inj) 0.5 mg IV NOW ONE Stop: 04/23/21 09:41 Last Admin: 04/23/21 09:46 Dose: 0.5 mg Documented by: REAL Sodium Chloride (Normal Saline 0.9%) 1,000 mls @ 1,000 mls/hr IV BOLUS ONE Stop: 04/23/21 10:31 Last Infusion: 04/23/21 10:36 Dose: 0 mls/hr Documented by: Admin: 04/23/21 09:45 Dose: 1,000 mls/hr Documented by: REAL Lactated Ringer's (Lactated Ringers) 1,000 mls @ 150 mls/hr IV CONT MAXWELL Last Infusion: 04/23/21 10:57 Dose: 150 mls/hr Documented by: Infusion: 04/23/21 10:39 Dose: 0 mls/hr Documented by: Admin: 04/23/21 09:46 Dose: 150 mls/hr Documented by: REAL Ondansetron HCl (Ondansetron 4 Mg/2 Ml Inj) 4 mg IV NOW ONE Stop: 04/23/21 09:41 Last Admin: 04/23/21 09:46 Dose: 4 mg Documented by: REAL Vital Signs Vital signs: Vital Signs - 8 hr 04/23/21 09:45 04/23/21 10:00 04/23/21 10:15 Pulse Rate 73 74 76 Blood Pressure Pulse Oximetry 99 97 98 04/23/21 10:29 04/23/21 10:30 04/23/21 10:55 Pulse Rate 75 74 78 Blood Pressure 114/56 L 112/57 L Pulse Oximetry 100 100 99 04/23/21 10:56 04/23/21 11:00 04/23/21 11:15 Pulse Rate 77 78 80 Blood Pressure 124/62 119/60 111/58 L Pulse Oximetry 100 99 97 04/23/21 11:30 04/23/21 11:44 04/23/21 11:45 Pulse Rate 82 73 74 Blood Pressure 108/58 L 114/62 Pulse Oximetry 97 100 100 MDM - Abdominal Pain Lab Data Result diagrams: 04/23/21 09:40 04/23/21 09:40 Labs: Lab Results 04/23/21 04/23/21 04/23/21 Range/Units 09:40 09:40 09:40 WBC 8.9 (4.5-11.0) X10^3/uL RBC 4.95 (4.0-5.2) X10^6/uL Hgb 11.6 L (12.0-16.0) g/dL Hct 35.5 L (36-46) % MCV 71.7 L (80-100) fL MCH 23.4 L (26-34) PG MCHC 32.6 (30-36) % RDW 18.0 H (11.6-14.8) % Plt Count 272 (150-400) X10^3/uL Neut % (Auto) 83.4 H (50-75) % Lymph % (Auto) 10.2 L (25-40) % [place] % (Auto) 5.3 (3-14) % Eos % (Auto) 0.9 L (2-4) % Baso % (Auto) 0.2 (0-2) % Neut # (Auto) 7400 H (6670-5851) /uL Lymph # (Auto) 900 L (4585-0803) /uL [place] # (Auto) 500 (0-900) /uL Eos # (Auto) 100 (0-450) /uL Baso # (Auto) 0 (0-100) /uL Sodium 137 (137-145) mmol/L Potassium 3.7 (3.4-5.1) mmol/L Chloride 102 (98-107) mmol/L Carbon Dioxide 27 (22-32) mmol/L BUN 10 (7-17) mg/dL Creatinine 0.74 (0.52-1.04) mg/dL Estimated GFR > 60.0 (>60) mL/min BUN/Creatinine Ratio 13.5 (6-22) Glucose 101 H (70-100) mg/dL Lactate 1.3 (0.7-2.1) mmol/L Calcium 9.2 (8.4-10.2) mg/dL Total Bilirubin 0.4 (0.2-1.3) mg/dL AST 22 (14-36) IU/L ALT 13 (<35) IU/L Alkaline Phosphatase 61 (38-126) U/L Total Protein 7.4 (6.3-8.2) g/dL Albumin 4.2 (3.5-5.0) g/dL Globulin 3.2 (1.7-4.1) g/dL Albumin/Globulin Ratio 1.3 (1.0-2.8) Lipase 65 (23-300) U/L Procalcitonin 0.04 (<0.5) ng/mL SARS-CoV-2 (PCR) (Negative) Blood Type Antibody Screen 04/23/21 04/23/21 Range/Units 09:40 09:45 WBC (4.5-11.0) X10^3/uL RBC (4.0-5.2) X10^6/uL Hgb (12.0-16.0) g/dL Hct (36-46) % MCV (80-100) fL MCH (26-34) PG MCHC (30-36) % RDW (11.6-14.8) % Plt Count (150-400) X10^3/uL Neut % (Auto) (50-75) % Lymph % (Auto) (25-40) % [place] % (Auto) (3-14) % Eos % (Auto) (2-4) % Baso % (Auto) (0-2) % Neut # (Auto) (2396-7412) /uL Lymph # (Auto) (9480-4808) /uL [place] # (Auto) (0-900) /uL Eos # (Auto) (0-450) /uL Baso # (Auto) (0-100) /uL Sodium (137-145) mmol/L Potassium (3.4-5.1) mmol/L Chloride (98-107) mmol/L Carbon Dioxide (22-32) mmol/L BUN (7-17) mg/dL Creatinine (0.52-1.04) mg/dL Estimated GFR (>60) mL/min BUN/Creatinine Ratio (6-22) Glucose (70-100) mg/dL Lactate (0.7-2.1) mmol/L Calcium (8.4-10.2) mg/dL Total Bilirubin (0.2-1.3) mg/dL AST (14-36) IU/L ALT (<35) IU/L Alkaline Phosphatase (38-126) U/L Total Protein (6.3-8.2) g/dL Albumin (3.5-5.0) g/dL Globulin (1.7-4.1) g/dL Albumin/Globulin Ratio (1.0-2.8) Lipase (23-300) U/L Procalcitonin (<0.5) ng/mL SARS-CoV-2 (PCR) Negative (Negative) Blood Type O Positive Antibody Screen Negative Point of care testing: Urine Dip Bedside Urine Glucose Negative Bedside Urine Bilirubin - Negative Bedside Urine Ketone +/- 5 Urine Specific [place] 1.015 Bedside Urine Occult Blood - Negative Bedside Urine pH 6.0 Bedside Urine Protein - Negative Bedside Urine Urobilinogen - Negative Bedside Urine Nitrite - Negative Bedside Urine Leukocytes - Negative Esterase Imaging Data CT scan - abdomen/pelvis: Radiologist's Impression: [address] [id number] Scan ReportSigned Patient: Adrianna Rogers [facility]#: [id number]: 1985Acct:[id number]/Sex: 36 / FDate of Service: 04/23/21Loc: EDAccession Number: [id number] Procedure: CT abdomen pelvis w con Ordering Provider: Krzysztof Harris D.O. PROCEDURE: CT ABDOMEN PELVIS W CON INDICATIONS: severe pain, vomiting, recent lap hyst TECHNIQUE: After the administration of intravenous contrast, axial sections acquired from the lung bases to the pubic symphysis. Coronal and sagittal reformats were performed. For radiation dose reduction, the following was used: automated exposure control, adjustment of mA and/or kV according to patient size. COMPARISON: [facility], CR, XR CHEST 1V, 04/23/2021, 9:47. [facility], CT, CT ABDOMEN PELVIS W CON, 12/10/2020, 15:33. [facility], US, US PELVIC COMPLETE, 03/09/2021, 16:41. FINDINGS: Image quality: Excellent. Lung bases: Unremarkable. Heart: No significant findings. ABDOMEN: Liver: Unremarkable. Gallbladder: Unremarkable. Biliary ducts: Unremarkable. Pancreas: Unremarkable. Spleen: Unremarkable. Adrenal Glands: Unremarkable. Kidneys and Ureters: Unremarkable. Stomach and Bowel: Stomach, small bowel loops, and colon are unremarkable. There is a moderate amount of stool seen within the colon. Peritoneum: A small amount of free intraperitoneal fluid can be seen. There is a small to moderate of ascites seen that measures up to 30 Hounsfield units. Ventral Wall: No hernias. Postoperative change with gas and irregularity can be seen involving the anterior abdominal wall. There is a right rectus sheath hematoma seen, as on series 2, image 65 measuring approximately 3.5 x 2.5 cm in greatest axial dimension. Abdominal Nodes: No retroperitoneal or mesenteric adenopathy by size criteria. Vessels: Aorta and inferior vena cava are normal in size. PELVIS: Pelvic Organs: Supracervical hysterectomy change is seen. Generalized soft tissue irregularity is seen, yet without a focal fluid collection to suggest abscess. Is an apparent right ovarian hemorrhagic cyst is again seen, as on series 2, image 67 measuring 1.5 cm. Bladder: Unremarkable. Pelvic Nodes: No enlarged lymph nodes. Miscellaneous: No hernias are seen. Bones: Unremarkable. IMPRESSION: Interval supracervical hysterectomy, with generalized inflammatory change and a [id number] amount of complicated ascites, likely hemorrhagic. No focal abscess is identified. Postoperative change of the anterior abdominal wall is seen, including a mild right rectus sheath hematoma. A right ovarian hemorrhagic cyst is again seen. There is a moderate amount of stool seen within the colon. Please correlate with an underlying history of constipation. Dictated by: Romeo Goetz M.D. on 04/23/2021 at 9:59 Approved by: Romeo Goetz M.D. on 04/23/2021 at 10:03 Discharge Plan Departure Patient Disposition: Home Clinical Impression: Hematoma, Post-operative pain Instructions: DI for Hematoma (Bruise), DI for Acute Abdominal Pain Activity Restrictions/Additional Instructions: *You have been diagnosed with [severe lower abdominal pain appears to be related to a small hematoma (bruise) and fair amount of stool. Otherwise your exam, labs, and imaging is very reassuring. I spoke with Dr. Araujo's partner who agrees with the plan to discharge with follow up, and he sent a note to Dr. Araujo to keep her in the loop] *What to do: *Please continue to follow the discharge instructions given to you post operatively. *Please follow up with Dr. Araujo, call the office and let them know your in the emergency department and we asked you to be seen in follow-up *Return to Emergency Department if you should have any new, worsening or adrian rning symptoms, such as [fever greater than 101 F, shaking chills, worsening pain, persistent vomiting or other bothersome symptoms] Prescriptions: New ondansetron 4 mg tablet,disintegrating 4 mg PO TID-QID PRN (Reason: nausea and vomiting) Qty: 10 RF: 0 No Action diazepam PO PRN PRN (Reason: Anxiety) RF: 0 acyclovir 400 mg tablet 400 mg PO PRN PRN (Reason: herpes) RF: 0 propranolol 10 mg tablet 10 mg PO QID RF: 0 escitalopram oxalate [Lexapro] 20 mg Tablet 20 mg PO DAILY RF: 0 oxycodone 5 mg tablet 5 mg PO Q4H PRN (Reason: pain) Qty: 14 RF: 0 Referrals: Cassandra Araujo MD [Physician] - Sandra Guajardo FNP-C [Primary Care Provider] -
[2021-04-23 10:06] LABS: Alanine Aminotransferase 13 IU/L (<35); Albumin 4.2 g/dL (3.5-5.0); Albumin Globulin Ratio 1.3 (1.0-2.8); Alkaline Phosphatase 61 U/L (38-126); Aspartate Aminotransferase 22 IU/L (14-36); BUN Creatinine Ratio 13.5 (6-22); Bilirubin Total 0.4 mg/dL (0.2-1.3); Blood Urea Nitrogen 10 mg/dL (7-17); Calcium 9.2 mg/dL (8.4-10.2); Carbon Dioxide 27 mmol/L (22-32); Chloride 102 mmol/L (98-107); Estimated Glomerular Filt Rate > 60.0 mL/min (>60); Globulin 3.2 g/dL (1.7-4.1); Glucose 101 mg/dL (70-100); HEMOLYSIS < 15 (0-50); Lactate (Lactic Acid) 1.3 mmol/L (0.7-2.1); Lipase 65 U/L (23-300); Potassium 3.7 mmol/L (3.4-5.1); Sodium 137 mmol/L (137-145); Total Protein 7.4 g/dL (6.3-8.2)
[2021-04-23 10:22] LABS: Procalcitonin 0.04 ng/mL (<0.5)
[2021-04-23 11:03] LABS: COVID19 - ADMIT (NP swab/PCR) Negative (Negative)
== END 2021-04-23 12:25 | disposition home or self-care (01) ==
PROVIDERS: Emergency Provider Emergency Medicine; Family Provider Physician Assistant; PCP Registered Nurse
DX: L76.32 Postprocedural hematoma of skin and subcutaneous tissue following other procedure (principal); G89.18 Other acute postprocedural pain; R11.2 Nausea with vomiting, unspecified; Z20.822 Contact with and (suspected) exposure to COVID-19
CPT/HCPCS: 36415; 71045; 74177; 80053; 81003; 83605; 83690; 84145; 85025; 86850; 86900; 86901; 87040; 87635; 96361; 96374; 96375; 99284; C9803; J1170; J2405

== ENCOUNTER → 2021-04-30 12:32 | Outpatient (CLI) | payer OTHER, SELFPAY ==
[2021-04-19 12:34] VITALS: BMI 25.9
[2021-04-30 13:00] LABS: Appearance Urine UA CLEAR; Bilirubin Urine UA NEGATIVE (NEGATIVE); Color Urine UA YELLOW; Glucose Urine UA NEGATIVE (Negative); Ketones Urine UA NEGATIVE (NEGATIVE); Leukocyte Esterase Urine UA NEGATIVE (NEGATIVE); Nitrite Urine UA NEGATIVE (Negative); Occult Blood Urine UA 1+ (Negative); Protein Urine UA NEGATIVE (Negative); Urobilinogen Urine UA 0.2 E.U./dL (0.2)
[2021-04-30 13:19] LABS: pH Urine UA 5.5 (4.5-8.0)
[2021-04-30 13:21] LABS: Bacteria Urine Few (2-10); RBC Urine 1-5/HPF (0-5/HPF); Squamous Epithelial Cell Urine 5-10 /HPF (0-5/HPF); WBC Urine 0-1/HPF (0-5/HPF)
[2021-04-30 13:22] LABS: Culture Indicated Urine Cult Not Indicated; Mucus Urine 1+ (Negative)
== END ==
PROVIDERS: Family Provider Physician Assistant; PCP Registered Nurse; Referring Provider Obstetrics & Gynecology; Visit Provider Obstetrics & Gynecology
DX: R30.0 Dysuria (principal)
CPT/HCPCS: 81001

== ENCOUNTER 2022-04-06 06:11 | Day surgery (SDC) | payer OTHER, MEDICAID, SELFPAY ==
[2021-04-19 12:34] VITALS: BMI 25.9
[2022-04-03 14:53] VITALS: BMI 23.9
[2022-04-06] VITALS (7 sets, daily range): BP systolic 96–119; BP diastolic 58–84; PULSE 60–80; RESP 12–16; TEMP 36.3–36.8; O2SAT 95–98; BMI 23.9
--- NOTE | 2022-04-06 | PATH_ITS ---
[facility] Accession Number: [id number] . 01 Material submitted: . ovary - LEFT OVARY . 01 Diagnosis: Left Ovary, Oophorectomy: Ovary with a benign hemorrhagic corpus luteum cyst (20 mm in greatest dimension). V 04/11/2022 1041 Local . 01 Electronically signed: . Lucero Recinos MD, Pathologist NPI- [id number] . 01 Gross description: . Received in a container of formalin, labeled left ovary, is a 4.0 x 3.0 x 2.5 cm ovary. The serosa is kelley-pink, smooth, and glistening. At one end of the ovary is an exposed 2.0 cm smooth lined cyst filled with hemorrhagic debris. The cyst has compressed and displaced its otherwise unremarkable ovarian parenchyma. Slotter Operator Helper sections are submitted in cassettes A1 and A2. ([id number]) /[facility] 04/08/2022 1440 Local . 01 Pathologist provided ICD-10: N83.209, N94.10 . 01 [facility] . [id number] Specimen Comment: A courtesy copy of this report has been sent to [phone] Performed at: 01 [facility] [address] [place] [address] [address] [facility], [place], [place] [id number] MD Eduardo Stafford MD Phone: [phone]
[2022-04-06 07:11] LABS: COVID19 -Nasal RAPID Negative (Negative)
[2022-04-06] MEDS: LACTATED RINGERS 1,000 ML 42 ML IV (07:20)
--- NOTE | 2022-04-06 07:58 | PM.HP.1 ---
History of Present Illness History of Present Illness Date Patient Seen: 04/06/22 Time Patient Seen: 07:58 Chief complaint: SDC Narrative: Patient is a 37-year-old 4 para 1 with a persistent left ovarian cyst. She presents for laparoscopic removal of the cyst versus removal of the left ovary. Patient History Medical History (Updated 02/20/22 @ 17:56 by Cassandra Araujo MD) Acne Allergies Anemia (~2019) Anxiety Bipolar 1 disorder Cervical spine disease (~2001) Chicken pox Depression Depression H/O migraine Herpes (~2017) History of bipolar disorder Myopia of both eyes No significant medical problems PTSD (post-traumatic stress disorder) (~2001) Rosacea Shoulder pain (~2001) Substance abuse (~2001) Thyroid nodule (~2019) Tinnitus (~2018) Vertigo (~2018) Surgical History Anesthesia History of bilateral tubal ligation (~2009) History of (~2008) History of cervical cerclage History of hysterectomy (~2020) [place] teeth extracted Family & Social History Family History Father Hypertension Mother Hypertension Brother Hypertension Sister Hypertension Grandmother Hypertension Social History: household members children Tobacco & Substance use: Smoking Status Former smoker alcohol intake former alcohol intake frequency 0-2 drinks per day Substance Use Type marijuana Meds Home Medications and Allergies Home Medications Medication Instructions Recorded Confirmed Type acyclovir 400 mg tablet 400 mg PO PRN PRN 04/19/21 04/06/22 History propranolol 10 mg tablet 10 mg PO QID 04/19/21 04/03/22 History fluoxetine 20 mg capsule (Prozac) 20 mg PO DAILY #30 cap 06/10/21 04/06/22 Rx clindamycin phosphate 1 % topical 1 applic TOPICAL DAILY #60 ml 02/16/22 04/06/22 Rx solution cyclobenzaprine 10 mg tablet 10 mg PO TID PRN #30 tab 02/16/22 04/06/22 Rx montelukast 10 mg tablet 10 mg PO DAILY #90 tab 02/16/22 04/06/22 Rx sumatriptan succinate 25 mg tablet See Rx Instructions PO .COMPLEX 02/16/22 04/03/22 Rx #10 tab Allergies Allergy/AdvReac Type Severity Reaction Status Date / Time amoxicillin Allergy Severe Anaphylaxis Verified 04/06/22 07:05 lurasidone [From Latuda] Allergy Severe Anxiety Verified 04/06/22 07:05 Penicillins Allergy Severe Anaphylaxis Verified 04/06/22 07:05 castor oil Allergy Intermediate Verified 04/06/22 07:05 latex Allergy Mild Rash Verified 04/06/22 07:05 Exam Vital Signs (past 8 hours): - 04/06/22 07:09 Temperature 97.6 F Pulse Rate 60 Respiratory Rate 16 Blood Pressure 119/84 Pulse Oximetry 98 Oxygen Delivery Method Room Air Narrative Exam Narrative: HEENT: No thyromegaly, no anterior cervical or supraclavicular lymphadenopathy. Lungs:Clear to auscultation bilaterally, no wheezes. Cardiovascular: Regular rate and rhythm, no murmurs, rubs, or gallops. Abdomen: Well-healed laparoscopy scars. No hepatosplenomegaly. No masses palpable. External genitalia: Normal Vagina: Normal Cervix: Normal Bimanual exam: Left adnexal tenderness Extremities: No edema Objective Labs Labs: Laboratory Results - last 24 hr 04/06/22 06:53 SARS-CoV-2 (PCR) Negative Assessment & Plan Time Spent With Patient Critical Care time: I spent a total of [] minutes of critical care time on this patient's care today; this time is exclusive of procedural time.
--- NOTE | 2022-04-06 08:00 | PM.PREOP ---
Pre-operative Note COVID-19 COVID-19 status: Negative Result date/Date tested (Pos, Neg/Pending): 04/06/22 Criteria for continued procedure: Non-surgical alternatives not available or appropriate per current SOC Interval Note History & Physical reviewed/Exam performed by Physician: Yes Changes to H&P: No H&P completed within 30 days and has changed as indicated here:: 04/06/22
[2022-04-06] MEDS: BUPIVACAINE 0.5% W/ EPI (PF) 30 ML VIAL INJ (08:34)
--- NOTE | 2022-04-06 08:38 | SUR.OPER ---
Lithotomy on padded OR bed, head on pillow, arms padded with gel pads and tucked at sides. Legs secured in padded yellow fins stirrups. Patient voided at 0746 in pre-op area prior to entering Operating Room.
--- NOTE | 2022-04-06 09:05 | PM.GYNOP.1 ---
Operative Date/Time/Diagnoses Date of procedure: 04/06/22 Time of procedure: 09:05 Pre-op diagnosis: Recurrent left ovarian cyst Post-op diagnosis: same Procedure & Clinicians Procedure: Procedures Operation Date: 04/06/22 07:45 Actual Procedure Side Surgeon p laparoscopic Left oophorectomy Cassandra Araujo MD Indications: Recurrent left ovarian cyst Failed medical treatment Surgeon: Cassandra Araujo Anesthesia Type: General and Local Operative Notes Findings: Uterus is surgically absent Tubes are surgically absent Normal right ovary Left ovary with a 5 cm cyst Left lower quadrant adhesion Right ovary to sidewall adhesions Normal liver and gallbladder Closure Type: primary Specimen(s): other (Left ovary) Estimated blood loss (mL): 5 Blood products transfused: none Procedure in detail: After informed consent was obtained, the patient was taken to the operating room where she was placed in the dorsal supine position. After adequate general tracheal anesthesia was achieved, she was placed in the dorsal lithotomy position, and prepped and draped in the usual sterile fashion. A time-out was performed. A moistened sponge stick was placed into the vagina. 6 cc of 0.5% Marcaine with epinephrine were injected in the umbilical fold. A 1 cm incision was made. The Veress needle was placed into the peritoneal cavity, and its placement confirmed by aspiration and drop test. The abdominal cavity was insufflated with 3.0 L of CO2. The Veress needle was removed, and a at 12 mm trocar was placed without difficulty. Two other incisions were made 4 cm lateral to the midline after 6 cc of 0.5% Marcaine with epinephrine were injected. Two 5 mm trocars were placed under direct visualization. The right ovary was identified and was found to be normal. There were some adhesions between the right ovary and the right pelvic sidewall. The power seal was used to take down the adhesions with care to avoid the ureter. On the left side of the left ovary was grasped with an atraumatic grasper. The infundibulopelvic ligament on the left side was cauterized and cut with the power seal. Hemostasis was achieved. The left lower quadrant adhesions to the ovary were also taken down with the power seal. The camera was moved to the right lateral trocar. The small endobag was placed through the umbilical trocar and the ovary placed into the bag. The trocar was removed. The bag was brought up through the incision. The cyst was aspirated and decompressed inside the bag. The bag was removed with ovary without difficulty. This was sent to pathology. The umbilical trocar was replaced. The pelvis was examined and there was no bleeding noted. The instruments were removed from the abdomen. The CO2 was allowed to escape. The trocars were removed. The umbilical incision was closed on the fascia with 0 Vicryl. The subcutaneous layer in the umbilical incision was irrigated with warm normal saline. Two simple interrupted sutures with 3-0 Vicryl were placed to reapproximate the subcutaneous layer. All of the incisions were closed with 4-0 Monocryl in a subcuticular fashion. Steri-Strips and Allevyn dressings were placed. A moistened sponge stick was removed from the vagina. Sponge, lap, and instrument counts were correct x2. The patient tolerated the procedure well, and was taken to PACU in stable condition. Complications: none Post-operative Condition: stable Disposition: PACU Plan for aftercare: Home after recovery
[2022-04-06] MEDS: OXYCODONE/ACETAMINOPHEN 5/325 TABLET 1 TAB PO (09:26)
[2022-04-06] MEDS: ONDANSETRON 4 MG/2 ML INJ IV (10:03)
--- NOTE | 2022-04-06 10:07 | SUR.PHASEII ---
Pt reports nausea. Zofran administered per orders.
--- NOTE | 2022-04-06 10:57 | SUR.PHASEII ---
Pt w/o complaints when asked.
[2022-04-06] MEDS: ONDANSETRON 4 MG ODT 8 MG SL (11:33)
--- NOTE | 2022-04-06 11:37 | SUR.PHASEII ---
Pt reports nausea, IC previously d/c. Zofran ODT administered.
== END 2022-04-06 11:50 | disposition home or self-care (01) ==
PROVIDERS: Family Provider Physician Assistant; PCP Family Medicine; Referring Provider Obstetrics & Gynecology; Visit Provider Obstetrics & Gynecology
PROC: (CPT 58661; principal; 2022-04-06 07:45)
DX: N83.12 Corpus luteum cyst of left ovary (principal); N73.6 Female pelvic peritoneal adhesions (postinfective); F41.9 Anxiety disorder, unspecified
CPT/HCPCS: 58661; 87635; C9803; J0360; J1100; J1170; J2405; J2704

== ENCOUNTER → 2022-05-13 15:08 | Outpatient (CLI) | payer OTHER, MEDICAID, SELFPAY ==
[2021-04-19 12:34] VITALS: BMI 25.9
[2022-05-13 17:00] LABS: Urine N gonorrhoeae NOT DETECTED
[2022-05-13 17:16] LABS: Urine Chlamydia NOT DETECTED
== END ==
PROVIDERS: Family Provider Physician Assistant; PCP Family Medicine; Visit Provider Physician Assistant
DX: R30.0 Dysuria (principal); N89.8 Other specified noninflammatory disorders of vagina; Z11.3 Encounter for screening for infections with a predominantly sexual mode of transmission
CPT/HCPCS: 81002; 87077; 87086; 87186; 87210; 87491; 87591

== ENCOUNTER → 2022-06-19 11:41 | Outpatient (CLI) | payer OTHER, MEDICAID, SELFPAY ==
[2021-04-19 12:34] VITALS: BMI 25.9
[2022-06-21 15:08] LABS: Candida species Positive (Negative); Gardnerella vaginalis Negative (Negative); Trichomoas vaginalis Negative (Negative)
== END ==
PROVIDERS: Family Provider Physician Assistant; PCP Family Medicine; Visit Provider Physician Assistant Medical
DX: N89.8 Other specified noninflammatory disorders of vagina (principal)
CPT/HCPCS: 81002; 87070; 87077; 87205; 87480; 87510; 87660

== ENCOUNTER → 2022-12-08 14:41 | Outpatient (CLI) | payer OTHER, MEDICAID, SELFPAY ==
[2021-04-19 12:34] VITALS: BMI 25.9
[2022-12-08 16:38] LABS: Cancer Antigen 125 6.9 U/mL (0-35)
== END ==
PROVIDERS: Family Provider Physician Assistant; PCP Family Medicine; Referring Provider Obstetrics & Gynecology; Visit Provider Obstetrics & Gynecology
DX: N83.209 Unspecified ovarian cyst, unspecified side (principal); R19.09 Other intra-abdominal and pelvic swelling, mass and lump
CPT/HCPCS: 36415; 86304

== ENCOUNTER → 2022-12-20 15:11 | Outpatient (CLI) | payer OTHER, MEDICAID, SELFPAY ==
[2021-04-19 12:34] VITALS: BMI 25.9
[2022-12-20 16:32] LABS: Appearance Urine UA SL CLOUDY; Bilirubin Urine UA NEGATIVE (NEGATIVE); Color Urine UA YELLOW; Glucose Urine UA NEGATIVE (Negative); Ketones Urine UA TRACE (NEGATIVE); Leukocyte Esterase Urine UA NEGATIVE (NEGATIVE); Nitrite Urine UA NEGATIVE (Negative); Occult Blood Urine UA 1+ (Negative); Protein Urine UA NEGATIVE (Negative); Urobilinogen Urine UA 0.2 E.U./dL (0.2)
[2022-12-20 17:11] LABS: Bacteria Urine Occasional (0-1); RBC Urine 5-10/HPF (0-5/HPF); Squamous Epithelial Cell Urine 5-10 /HPF (0-5/HPF); WBC Urine 1-5/HPF (0-5/HPF)
[2022-12-20 17:12] LABS: Culture Indicated Urine Cult Not Indicated; Mucus Urine 1+ (Negative); Urine N gonorrhoeae NOT DETECTED
[2022-12-20 17:26] LABS: Urine Chlamydia NOT DETECTED
== END ==
PROVIDERS: Family Provider Physician Assistant; PCP Family Medicine; Visit Provider Registered Nurse
DX: R39.89 Other symptoms and signs involving the genitourinary system (principal); R30.0 Dysuria
CPT/HCPCS: 81001; 81002; 87086; 87210; 87491; 87591

== ENCOUNTER → 2023-01-22 15:40 | Outpatient (CLI) | payer OTHER, MEDICAID, SELFPAY ==
[2021-04-19 12:34] VITALS: BMI 25.9
== END ==
PROVIDERS: Family Provider Physician Assistant; PCP Family Medicine; Visit Provider Obstetrics & Gynecology
DX: R31.9 Hematuria, unspecified (principal); R39.9 Unspecified symptoms and signs involving the genitourinary system
CPT/HCPCS: 81002; 87077; 87086; 87186

== ENCOUNTER 2024-08-31 18:04 | Emergency (ER) | payer OTHER, MEDICAID, SELFPAY ==
[2023-01-25 13:54] VITALS: BMI 25.9
[2024-08-31 18:08] VITALS: BP 130/88; PULSE 80; RESP 16; TEMP 35.9; O2SAT 100; BMI 24.1
--- NOTE | 2024-08-31 18:40 | ED_ITS ---
HPI - Anxiety General Chief Complaint: Anxiety Stated Complaint: mental health crisis Time Seen by Provider: 08/31/24 18:12 Source: patient Mode of arrival: Ambulatory Limitations: no limitations History of Present Illness HPI narrative: Patient is a 39-year-old female. Has a longstanding history of bipolar disorder and also anxiety. Does not see a mental health professional. She was on medications for these issues prescribed by her primary doctor. She states she had a ?loss? on Sunday. She would not explain more as to what this was but since that time she was had an increase in her anxiety to the point where she can not get to sleep at night. States she has a hard time getting out of bed in the morning and doing her activities of daily living. She denies fevers. Denies suicidal or homicidal ideation. She states she has been admitted to a mental health facility in the past but not feel like she needs admitted now. She states she does feel safe at home. She states that Ativan has worked very well for her in the past in the situations to avoid ?spiraling? and potential suicidal ideation and admission to the hospital. She was here seeking a prescription for Ativan to help her get through the next couple days until she can follow up with her primary doctor. Related Data Home Medications Medication Instructions Recorded Confirmed acyclovir 400 mg tablet 400 mg PO PRN PRN herpes 04/19/21 05/13/22 propranolol 10 mg tablet 10 mg PO QID 04/19/21 05/13/22 Previous Rx's Medication Instructions Recorded clindamycin phosphate 1 % topical 1 applic topical DAILY #60 mL 02/16/22 solution cyclobenzaprine 10 mg tablet 10 mg PO TID PRN muscle spasm #30 02/16/22 tabs sumatriptan succinate 25 mg tablet See Rx Instructions PO .COMPLEX 02/16/22 #10 tabs fluconazole 150 mg tablet 150 mg PO Q72H vaginitis 1 dose #3 06/21/22 (Diflucan) tabs fluconazole 150 mg tablet 150 mg PO Q3D 2 doses #2 tabs 08/10/22 (Diflucan) ciprofloxacin HCl 500 mg tablet 500 mg PO BID #20 tabs 09/22/22 sertraline 100 mg tablet 100 mg PO DAILY #60 tabs 01/26/23 montelukast 10 mg tablet See Rx Instructions .Route 05/25/23 .COMPLEX #90 tabs lorazepam 1 mg tablet See Rx Instructions .Route 09/04/23 .COMPLEX #90 tabs lorazepam 0.5 mg tablet (Ativan) 0.5 mg PO BID PRN anxiety #10 tabs 08/31/24 Allergies Allergy/AdvReac Type Severity Reaction Status Date / Time amoxicillin Allergy Severe Anaphylaxis Verified 08/31/24 18:08 lurasidone [From Latuda] Allergy Severe Anxiety Verified 08/31/24 18:08 Penicillins Allergy Severe Anaphylaxis Verified 08/31/24 18:08 castor oil Allergy Intermediate Verified 08/31/24 18:08 latex Allergy Mild Rash Verified 08/31/24 18:08 Review of Systems Review of Systems Narrative: See HPI Patient History Medical History Generalized anxiety disorder with panic attacks Chronic left shoulder pain Right buttock pain Chronic neck pain Myopia of both eyes Depression Rosacea Acne Allergies Substance abuse (~2001) PTSD (post-traumatic stress disorder) (~2001) History of bipolar disorder Cervical spine disease (~2001) Shoulder pain (~2001) Chicken pox Anemia (~2019) Vertigo (~2018) Tinnitus (~2018) Herpes (~2017) Thyroid nodule (~2019) H/O migraine Bipolar 1 disorder Depression Nabothian cyst (~2009) No significant medical problems Surgical History Anesthesia History of hysterectomy (~2020) [place] teeth extracted History of cervical cerclage History of bilateral tubal ligation (~2009) History of (~2008) Family History Father Hypertension Mother Hypertension Brother Hypertension Sister Hypertension Grandmother Hypertension Social History household members: spouse and children Smoking Status: Former smoker alcohol intake: former Smoking Status: Former smoker alcohol intake frequency: 0-2 drinks per day Substance Use Type: marijuana Exam Initial Vital Signs Initial Vital Signs: Vital Signs Temperature 96.7 F L 08/31/24 18:08 Pulse Rate 80 08/31/24 18:08 Respiratory Rate 16 08/31/24 18:08 Blood Pressure 130/88 08/31/24 18:08 Pulse Oximetry 100 10/20/24 18:08 Oxygen Delivery Method Room Air 10/20/24 18:08 Const General: cooperative, comfortable and No ill appearing Resp Effort & Inspection: normal respiratory effort Cardio Rate: regular rate Neuro Other: Alert and oriented x3. Psych Other: Calm, cooperative, does not appear anxious, not suicidal, not homicidal Course Orders Ordered: ED Orders 08/31/24 18:42 Consult to CUE SELECTOR - Actuarial Science Teacher Stat Discontinued Medications Lorazepam (Lorazepam 0.5 Mg Tablet) 1 mg PO NOW ONE Stop: 08/31/24 19:14 Last Admin: 08/31/24 19:22 Dose: 1 mg Documented By: Vital Signs Vital signs: Vital Signs - 8 hr 08/31/24 18:08 08/31/24 19:26 Temperature 96.7 F L 98.5 F Pulse Rate 80 65 Respiratory Rate 16 16 Blood Pressure 130/88 112/78 Pulse Oximetry 100 98 Oxygen Delivery Method Room Air Room Air MDM - Anxiety MDM Narrative Medical decision making narrative: Patient was not homicidal. Not suicidal. Feels safe at home. Does not want admitted in the hospital. States that Ativan has worked for her in the past in the situations. I will prescribe a short course of Ativan however she will need to follow up with her primary care doctor. She states that she can and will return to the emergency department if her symptoms get worse. She was seen by social work. Will discharge patient home. Discharge Plan Departure Patient Disposition: Home Clinical Impression: Anxiety Instructions: DI for Anxiety -- Adult Activity Restrictions/Additional Instructions: I recommend that you contact your primary care doctor tomorrow when the office is open to discuss a follow-up and potential medication changes. Please return to the emergency department if needed for worsening symptoms. Prescriptions: New lorazepam [Ativan] 0.5 mg tablet 0.5 mg PO BID PRN (Reason: anxiety) Qty: 10 0RF No Action clindamycin phosphate 1 % solution 1 applic topical DAILY Qty: 60 1RF sumatriptan succinate 25 mg tablet See Rx Instructions PO .COMPLEX Qty: 10 4RF Rx Instructions: take 1 tab at onset of headache; if no relief may repeat 1 tab after at least 2 hrs; max = 4 tabs/24 hr PO cyclobenzaprine 10 mg tablet 10 mg PO TID PRN (Reason: muscle spasm) Qty: 30 3RF fluconazole [Diflucan] 150 mg tablet 150 mg PO Q72H Qty: 3 0RF Rx Instructions: administer on day 1 of therapy fluconazole [Diflucan] 150 mg tablet 150 mg PO Q3D Qty: 2 0RF Rx Instructions: Take one now, repeat in 5 days if needed. ciprofloxacin HCl 500 mg tablet 500 mg PO BID Qty: 20 0RF montelukast 10 mg tablet See Rx Instructions .ROUTE .COMPLEX Qty: 90 3RF Dose Instruction: TAKE ONE TABLET BY MOUTH DAILY Rx Instructions: TAKE ONE TABLET BY MOUTH DAILY lorazepam 1 mg tablet See Rx Instructions .ROUTE .COMPLEX Qty: 90 5RF Rx Instructions: Take 1 tablet by mouth TID as needed for sleep sertraline 100 mg tablet 100 mg PO DAILY Qty: 60 5RF Rx Instructions: Increase to 200mg daily after two weeks if needed. acyclovir 400 mg tablet 400 mg PO PRN PRN (Reason: herpes) propranolol 10 mg tablet 10 mg PO QID Referrals: Juanjo Gaffney DO [Primary Care Provider] - Stand Alone Forms: Patient Portal/API
--- NOTE | 2024-08-31 19:07 | CM.SWNOTE ---
ED WHEEL PRESS CLERK Assessment Note: Pt is a 39yo female, resident of [place], presented to the ED for a mental health crisis and requesting a bridge prescription of PRN Ativan until she is able to get this refilled with her PCP. WHEEL PRESS CLERK was consulted to assist with giving contacts for MH providers, crisis contacts. Pt's Primary Care Provider is Carolina Tinsley PA-C at [facility] (ph#[phone]) and insurance is [employer] and Medicaid. Reviewed chart and team rounds for pt's medical status and initial discharge needs. DCP met w/patient at bedside; introduced self and role. Patient was found in chair, alert and oriented, cooperative with assessment. Pt confirmed living situation and good support in family who live in [facility]. Patient stated she has interest in establishing with a MH Provider, stated she used to see a counselor at [facility], agreeable to re-establishing with them again. Patient requested this WHEEL PRESS CLERK to follow up with PCP for sooner appointment due to bridge appt. ED WHEEL PRESS CLERK provided pt with MH providers who can take her [employer] insurance as well as crisis contacts, pt appreciative. ED WHEEL PRESS CLERK called [facility] office (ph#[phone]) and left a voice message, requested a call back so this WHEEL PRESS CLERK can provide referral for MH assessment. ED WHEEL PRESS CLERK to follow up with pt PCP office the next business day and relay that pt would like to have follow up after ED visit with PCP, pt gave consent for this WHEEL PRESS CLERK to relay all information necessary. Plan: Patient to discharge with bridge medication for PRN ativan, pt to follow up with PCP, [facility] to re-establish with MH Provider. CM team will follow closely for coordination of discharge plans. DARA Harris
[2024-08-31] MEDS: LORazepam 0.5 MG TABLET 1 MG PO (19:22)
[2024-08-31 19:26] VITALS: BP 112/78; PULSE 65; RESP 16; TEMP 36.9; O2SAT 98
--- NOTE | 2024-09-01 11:26 | CM.SWNOTE ---
Addendum entered by BRUNA Ray 09/01/24 11:32: ED CORRECTIONAL MEDICINE PHYSICIAN faxed notes to [facility] (fax#[phone]) per their request for continued care, pt gave verbal consent the previous evening. Original Note: ED CORRECTIONAL MEDICINE PHYSICIAN Follow up Note: Follow up from pt previous visit on 08/31/2024. ED CORRECTIONAL MEDICINE PHYSICIAN called pt PCP at [facility], and spoke with biomedical electronics technician. Gave pt information, biomedical electronics technician to follow up with pt to schedule follow up appt. ED CORRECTIONAL MEDICINE PHYSICIAN called [facility], was directed to oncology rep specialist and left a message with pt information requesting for them to follow up with pt to schedule MH intake. Plan: Pt to follow up with PCP and MH assessment appts. DARA Harris
== END 2024-08-31 19:27 | disposition home or self-care (01) ==
PROVIDERS: Emergency Provider Emergency Medicine; Family Provider Physician Assistant; PCP Family Medicine
DX: F41.9 Anxiety disorder, unspecified (principal)
CPT/HCPCS: 99283